=== PATIENT | male | born 1955 | race Caucasian/White ===

== ENCOUNTER → 2017-11-16 | Outpatient (CLI) | payer OTHER ==
[~2017-11-16] VITALS: Ht 185.4 cm; Wt 63.9 kg
[~2017-11-16] MED LIST: IBU400 MG PO; MOTRIN 400400 MG/TAB PO; QUESTRAN4 GM/9 GM PO; ULTRAM ER100 MG PO; VALIUM 5MG T5 MG/TAB PO
[2017-11-16 09:57] VITALS: BP 156/92; PULSE 51
[2017-11-16 10:21] LABS: PROTHROMBIN TIME 11.8 SECONDS (9.7-12.8)
== END ==
LOC: COL.RAD 09:30
PROVIDERS: Internal Medicine
DX: C24.0 Malignant neoplasm of extrahepatic bile duct (principal); K76.89 Other specified diseases of liver; Z53.8 Procedure and treatment not carried out for other reasons

== ENCOUNTER → 2018-06-04 | Outpatient (CLI) | payer OTHER ==
[2018-06-04] VITALS (9 sets, daily range): BP systolic 132–166; BP diastolic 68–97; PULSE 49–62
[~2018-06-04] VITALS: Ht 185.4 cm; Wt 65.9 kg
[2018-06-04 12:55] LABS: INR 1.1 (0.8-3.0)
== END ==
LOC: COL.RAD 05-29 12:30
PROVIDERS: Radiology Diagnostic Radiology
DX: C22.7 Other specified carcinomas of liver (principal); Z85.09 Personal history of malignant neoplasm of other digestive organs; Z98.890 Other specified postprocedural states
CPT/HCPCS: 25581

== ENCOUNTER 2018-08-09 17:27 | Emergency (ER) | payer OTHER ==
[~2018-08-09] VITALS: Ht 185.4 cm; Wt 63.6 kg
[2018-08-09 18:16] LABS: BASO % 0.4 % (0.0-2.0); EOS % 0.5 % (0-4.0); GRAN # 6.3 (1.4-6.5); GRAN % 83.3 % (42.2-75.2); HEMATOCRIT 39.2 % (42.0-52.0); HEMOGLOBIN 13.8 g/dl (13.5-18.0); LYMPH # 0.5 (1.2-3.4); LYMPH % 6.3 % (20.0-51.0); MEAN CELL VOLUME 94 fl (80.0-100.0); MEAN CORPUSCULAR HEMOGLOBIN 33 pg (27.0-31.0); MEAN CORPUSCULAR HGB CONC 35 g/dl (33.0-37.0); MEAN PLATELET VOLUME 9.9 fl (7.4-10.4); MONO # 0.7 (0.1-0.6); MONO % 9.2 % (1.7-9.3); PLATELET COUNT 132 K/mm3 (130-400); RED BLOOD COUNT 4.19 M/mm3 (4.20-5.60); REDCELL DISTRIBUTION WIDTH-CV 11.9 % (11.5-14.5)
[2018-08-09 18:32] LABS: ALBUMIN 3.8 gm/dL (3.5-5.0); BILIRUBIN,TOTAL 0.6 mg/dL (0.0-1.0); C-REACTIVE PROTEIN 3.2 mg/dL (0.0-0.9); CALCIUM 8.2 mg/dL (8.4-10.2); CREATININE, serum 0.58 mg/dL (0.66-1.25); POTASSIUM 4.1 mmol/L (3.4-5.0); TOTAL PROTEIN 6.7 gm/dL (6.4-8.2)
[2018-08-09 19:40] LABS: COLLECTION METHOD CLEAN CATCH
[2018-08-09 19:47] LABS: MUCOUS Present /lpf; PH 6 (5-8); SQUAMOUS EPITHELIAL None Seen /hpf; URINE APPEARANCE Clear; URINE BACTERIA None Seen /hpf; URINE BILIRUBIN Negative (NEGATIVE); URINE BLOOD Negative (NEGATIVE); URINE COLOR Yellow; URINE GLUCOSE Negative (NEGATIVE); URINE KETONE 2+ (NEGATIVE); URINE LEUKOCYTE ESTERASE Negative (NEGATIVE); URINE NITRATE Negative (NEGATIVE); URINE PROTEIN(semi-quant) Negative (NEGATIVE); URINE RBC 0-2 /hpf
[2018-08-09 20:47] VITALS: TEMP 100.1
[2018-08-09] MEDS ORDERED: CIPRO 500MG TA500 MG PO (20:52)
[2018-08-09] MEDS ORDERED: FLAGYL500 MG PO (20:52)
[2018-08-09 21:14] VITALS: BP 120/74; PULSE 63
== END 2018-08-09 21:17 | disposition home or self-care (01) ==
LOC: COL.ER 17:27
PROVIDERS: Emergency Medicine
DX: R10.11 Right upper quadrant pain (principal); R50.9 Fever, unspecified; Z90.49 Acquired absence of other specified parts of digestive tract; Z85.05 Personal history of malignant neoplasm of liver
CPT/HCPCS: J1644; J7030; Q9967

== ENCOUNTER 2018-12-24 11:46 | Emergency (ER) | payer SELFPAY ==
[~2018-12-24] VITALS: Ht 185.4 cm; Wt 62.1 kg
[~2018-12-24 11:46] MED LIST changes: +CIPRO 500MG TA500 MG PO; +FLAGYL500 MG PO
[2018-12-24 11:50] VITALS: TEMP 97.9
[2018-12-24] MEDS ORDERED: ATARAX 25MG25 MG/TAB PO (12:08)
[2018-12-24 12:43] LABS: BASO % 0.7 % (0.0-2.0); EOS # 0.1 (0.0-0.7); EOS % 2.5 % (0-4.0); GRAN # 3.3 (1.4-6.5); GRAN % 75.6 % (42.2-75.2); HEMATOCRIT 40.5 % (42.0-52.0); HEMOGLOBIN 13.6 g/dl (13.5-18.0); LYMPH # 0.5 (1.2-3.4); LYMPH % 11.2 % (20.0-51.0); MEAN CELL VOLUME 97 fl (80.0-100.0); MEAN CORPUSCULAR HEMOGLOBIN 33 pg (27.0-31.0); MEAN CORPUSCULAR HGB CONC 34 g/dl (33.0-37.0); MONO # 0.4 (0.1-0.6); MONO % 9.8 % (1.7-9.3); PLATELET COUNT 136 K/mm3 (130-400); RED BLOOD COUNT 4.18 M/mm3 (4.20-5.60); REDCELL DISTRIBUTION WIDTH-CV 12.5 % (11.5-14.5)
[2018-12-24 12:55] LABS: ALBUMIN 3.8 gm/dL (3.5-5.0); BILIRUBIN,TOTAL 3.5 mg/dL (0.0-1.0); C-REACTIVE PROTEIN 1.5 mg/dL (0.0-0.9); CREATININE, serum 0.6 mg/dL (0.66-1.25); POTASSIUM 4.6 mmol/L (3.4-5.0); TOTAL PROTEIN 7.3 gm/dL (6.4-8.2)
[2018-12-24 13:04] LABS: COLLECTION METHOD CLEAN CATCH
[2018-12-24 13:15] LABS: PH 6 (5-8); SQUAMOUS EPITHELIAL 0-2 /hpf; URINE APPEARANCE Clear; URINE BACTERIA None Seen /hpf; URINE BILIRUBIN Negative (NEGATIVE); URINE BLOOD Negative (NEGATIVE); URINE COLOR Amber; URINE GLUCOSE Negative (NEGATIVE); URINE KETONE Negative (NEGATIVE); URINE LEUKOCYTE ESTERASE Negative (NEGATIVE); URINE NITRATE Negative (NEGATIVE); URINE PROTEIN(semi-quant) Negative (NEGATIVE); URINE RBC 0-2 /hpf
[2018-12-24 16:10] VITALS: BP 122/60; PULSE 60
[2018-12-25] MEDS ORDERED: LEVAQUIN 5500 MG/TA1 PO (19:05)
[2018-12-25] MEDS ORDERED: COLESTID 1GM1 G PO (19:06)
[2018-12-25] MEDS ORDERED: COLESTID5 GM/PACKE PO (19:10)
[2018-12-25] MEDS ORDERED: TYLENOL 325MG325 MG PO (19:11)
== END 2018-12-24 16:10 | disposition home or self-care (01) ==
LOC: COL.ER 11:46
PROVIDERS: Family Medicine
DX: K83.1 Obstruction of bile duct (principal); K76.89 Other specified diseases of liver; Z87.891 Personal history of nicotine dependence
CPT/HCPCS: Q9967

== ENCOUNTER 2018-12-25 17:38 | Inpatient (IN) | payer OTHER ==
[~2018-12-25] VITALS: Ht 185.4 cm; Wt 61.6 kg
[~2018-12-25 17:38] MED LIST changes: +ATARAX 25MG25 MG/TAB PO
[2018-12-25] MEDS ORDERED: LEVAQUIN 5500 MG/TA1 PO (19:05)
[2018-12-25] MEDS ORDERED: COLESTID 1GM1 G PO (19:06)
[2018-12-25 19:09] VITALS: BP 116/66; PULSE 83; TEMP 99.4
[2018-12-25] MEDS ORDERED: COLESTID5 GM/PACKE PO (19:10)
[2018-12-25] MEDS ORDERED: TYLENOL 325MG325 MG PO (19:11)
[2018-12-25 19:33] LABS: BASO % 0.3 % (0.0-2.0); GRAN # 8.5 (1.4-6.5); GRAN % 89.9 % (42.2-75.2); HEMATOCRIT 40.1 % (42.0-52.0); HEMOGLOBIN 13.5 g/dl (13.5-18.0); LYMPH # 0.3 (1.2-3.4); LYMPH % 3.3 % (20.0-51.0); MEAN CELL VOLUME 96 fl (80.0-100.0); MEAN CORPUSCULAR HEMOGLOBIN 32 pg (27.0-31.0); MEAN CORPUSCULAR HGB CONC 34 g/dl (33.0-37.0); MEAN PLATELET VOLUME 10.2 fl (7.4-10.4); MONO # 0.6 (0.1-0.6); MONO % 6.1 % (1.7-9.3); PLATELET COUNT 142 K/mm3 (130-400); RED BLOOD COUNT 4.18 M/mm3 (4.20-5.60); REDCELL DISTRIBUTION WIDTH-CV 12.6 % (11.5-14.5)
[2018-12-25 19:39] LABS: ALBUMIN 3.8 gm/dL (3.5-5.0); BILIRUBIN,TOTAL 4.8 mg/dL (0.0-1.0); CALCIUM 8.7 mg/dL (8.4-10.2); CREATININE, serum 0.67 mg/dL (0.66-1.25); TOTAL PROTEIN 7.5 gm/dL (6.4-8.2)
[2018-12-25 21:25] LABS: PROTHROMBIN TIME 11.6 SECONDS (9.7-12.8)
[2018-12-25 23:18] VITALS: BP 141/71; PULSE 89; TEMP 102.3
[2018-12-25 23:44] LABS: COLLECTION METHOD CLEAN CATCH
[2018-12-25 23:51] LABS: PH 6 (5-8); SQUAMOUS EPITHELIAL 0-2 /hpf; URINE APPEARANCE Clear; URINE BACTERIA None Seen /hpf; URINE BILIRUBIN Negative (NEGATIVE); URINE BLOOD 1+ (NEGATIVE); URINE COLOR Amber; URINE GLUCOSE Negative (NEGATIVE); URINE KETONE Negative (NEGATIVE); URINE LEUKOCYTE ESTERASE Negative (NEGATIVE); URINE NITRATE Negative (NEGATIVE); URINE PROTEIN(semi-quant) Negative (NEGATIVE); URINE RBC 0-2 /hpf
[2018-12-26] VITALS (7 sets, daily range): BP systolic 107–142; BP diastolic 58–72; PULSE 67–86; TEMP 99–102.8
--- NOTE | 2018-12-26 01:58 | NUR ---
pt has had a 102.3 temp, Magdalene STAFF APPRAISER notified. blood cultures drawn before given Motrin. no needs at this time. will continue to monitor. pt admission assessment complete. pt skin jaundice. lungs clear. no swelling. A+Ox4. laying in bed with at bedside. call light in reach.
--- NOTE | 2018-12-26 03:00 | NUR ---
pt urine is armber, with a red tinge. no pain. temp decreased from 102.3 to 99.0 with motrin. no needs at this time. call light inreach
--- NOTE | 2018-12-26 04:44 | NUR ---
pt had an uneventful night. temp of 102.3- motrin brought temp down to 99.0. no needs at this time. call light inreach
--- NOTE | 2018-12-26 07:08 | NUR ---
REPORT GIVEN TO LINO AHUJA. PT REPORTS NO NEEDS
--- NOTE | 2018-12-26 11:19 | NUR ---
Assessment complete.patient laying in bed.a/ox3.denies pain or discomfort at this time.LSCTA.breathing even and unlabored.IVF infusing to left fermín cath.pt had MRCP done this morning.Pt continues to have fevers.last temp was 99.1.pulses palpable.abdomen soft and non tender.bowel sounds present and palpable.will continue to monitor.call light in reach.
--- NOTE | 2018-12-26 12:32 | NUR ---
First visit from the parachute cushion installer. No needs right now.
--- NOTE | 2018-12-26 12:59 | NUR ---
KUMAR met with patient and his about discharge plans. Patient lives independently at home with and plans to return there when discharged. Patient's PCP is Dr Kaur Rey and he obtains prescriptions from [facility] in [place]. Patient denies difficulty obtaining or paying for prescriptions. Patient does not have insurance but has completed a medicaid application and is waiting for the card to be mailed. Patient will meet with Sami from [email or web address] to complete a financial assistance application. Patient does not have any DME or home health services. Patient does not have a DPOA and is not interested in that at this time.
--- NOTE | 2018-12-26 18:24 | NUR ---
PATIENT TRANSFERED TO [facility] IN [place].REPORT GIVEN TO LINO CLAUDIO.PT TRANSPORTED VIA [facility].PT STABLE AT TIME OF TRANSPORT.GUERO CATH REMAINS ACCESSED.PT AWAKE AND ALERT.PRN MOTRIN GIVEN.PT DENIES ANY NEEDS.PT'S SPOUSE TOOK ALL PATIENT BELONGINGS.
== END 2018-12-26 18:26 | disposition short-term general hospital (02) | DRG 445 ==
LOC: MEDICAL 17:38
PROVIDERS: Nurse Practitioner Family; ADMIT Hospitalist
DX: K83.09 Other cholangitis (principal); C78.7 Secondary malignant neoplasm of liver and intrahepatic bile duct; E44.0 Moderate protein-calorie malnutrition; Z68.1 Body mass index [BMI] 19.9 or less, adult; Z87.891 Personal history of nicotine dependence; B95.2 Enterococcus as the cause of diseases classified elsewhere
CPT/HCPCS: 99239; A4216; J2185; J7030

== ENCOUNTER 2019-02-07 13:33 | Day surgery (SDC) | payer SELFPAY ==
[~2019-02-07] VITALS: Ht 185.4 cm; Wt 60.2 kg
[2019-02-07] VITALS (7 sets, daily range): BP systolic 140–154; BP diastolic 68–86; PULSE 56–69; TEMP 97.4–97.5
[~2019-02-07 13:33] MED LIST changes: +COLESTID 1GM1 G PO; +COLESTID5 GM/PACKE PO; +LEVAQUIN 5500 MG/TA1 PO; +TYLENOL 325MG325 MG PO
[2019-02-07] MEDS ORDERED: PRIL40 PO (14:20)
[2019-02-07] MEDS ORDERED: TYLENOL 325MG325 MG PO (14:20)
--- NOTE | 2019-02-07 14:21 | NUR ---
TO RM 1 AT 1341- CALL LIGHT IN REACH AT BEDSIDE.
--- NOTE | 2019-02-07 16:37 | NUR ---
TO RM 1 PER CART FROM PACU. C/O FEELING "SLIGHTLY NAUSEATED" DENIES PAIN OR DISCOMFORT RECEIVED WATER AT BEDSIDE.
--- NOTE | 2019-02-07 16:44 | NUR ---
RECEIVED ZOFRAN 4MG IV SLOW PUSH FOR C/O CONTINUED NAUSEA.
[2019-02-07] MEDS ORDERED: ULTRAM 50MG TAB50 MG PO (16:53)
--- NOTE | 2019-02-07 17:20 | NUR ---
RECEIVED CRACKERS AND TAKING A FEW BITES.
--- NOTE | 2019-02-07 18:45 | NUR ---
VOIDED 800CC LIGHT PUNCH COLORED URINE. STATED HE FELT HE COULD GO HOME NOW.
--- NOTE | 2019-02-07 19:00 | NUR ---
RECEIVED DISCHARGE INSTRUCTIONS AND VERBALIZED UNDERSTANDING.
--- NOTE | 2019-02-07 19:06 | NUR ---
DISCHARGED PER WC BY NURSING STAFF TO PRIVATE CAR IN CARE OF -JASON
== END 2019-02-07 19:09 | disposition home or self-care (01) ==
LOC: SDCO 13:33
DX: N13.2 Hydronephrosis with renal and ureteral calculous obstruction (principal); Z87.442 Personal history of urinary calculi; Z85.09 Personal history of malignant neoplasm of other digestive organs; Z79.899 Other long term (current) drug therapy; Z90.49 Acquired absence of other specified parts of digestive tract; Z87.11 Personal history of peptic ulcer disease; Z96.89 Presence of other specified functional implants; Z85.05 Personal history of malignant neoplasm of liver; Z92.21 Personal history of antineoplastic chemotherapy
CPT/HCPCS: C1758; C1769; C2617; J0360; J0690; J1100; J1644; J2405; J2704; J3010; J7120; Q9967

== ENCOUNTER 2019-04-01 13:32 | Inpatient (IN) | payer BC ==
[~2019-04-01] VITALS: Ht 185.4 cm; Wt 65.8 kg
[~2019-04-01 13:32] MED LIST changes: +PRIL40 PO; +ULTRAM 50MG TAB50 MG PO
[2019-04-01 14:36] LABS: BASO % 0.5 % (0.0-2.0); EOS # 0.1 (0.0-0.7); EOS % 0.8 % (0-4.0); GRAN # 6.4 (1.4-6.5); GRAN % 82.3 % (42.2-75.2); HEMOGLOBIN 11.3 g/dl (13.5-18.0); LYMPH # 0.5 (1.2-3.4); LYMPH % 6.6 % (20.0-51.0); MEAN CELL VOLUME 96 fl (80.0-100.0); MEAN CORPUSCULAR HEMOGLOBIN 32 pg (27.0-31.0); MEAN CORPUSCULAR HGB CONC 33 g/dl (33.0-37.0); MEAN PLATELET VOLUME 9.7 fl (7.4-10.4); MONO # 0.7 (0.1-0.6); MONO % 9.5 % (1.7-9.3); PLATELET COUNT 134 K/mm3 (130-400); RED BLOOD COUNT 3.55 M/mm3 (4.20-5.60); REDCELL DISTRIBUTION WIDTH-CV 13.1 % (11.5-14.5)
[2019-04-01 14:37] LABS: HEMATOCRIT 34.1 % (42.0-52.0)
[2019-04-01 14:47] LABS: ALBUMIN 3.1 gm/dL (3.5-5.0); BILIRUBIN,TOTAL 1.8 mg/dL (0.0-1.0); CALCIUM 8.3 mg/dL (8.4-10.2); CREATININE, serum 0.53 (0.66-1.25); POTASSIUM 4.4 mmol/L (3.4-5.0); TOTAL PROTEIN 6.7 gm/dL (6.4-8.2)
[2019-04-01 15:02] LABS: C-REACTIVE PROTEIN 14.2 mg/dL (0.0-0.9)
[2019-04-01 16:47] LABS: INR 1.2 (0.8-3.0); PROTHROMBIN TIME 13.5 SECONDS (9.7-12.8)
[2019-04-01 16:49] LABS: PARTIAL THROMBOPLASTIN TIME 97.3 SECONDS (26.0-37.0)
--- NOTE | 2019-04-01 19:42 | NUR ---
admission assessment completed, alert/oriented, vital signs have been stable, denies any pain, denies shortness of breath/ O2 sats WNL on room air, lungs CTA/ diminished bases, heart RRR, started on heparin gtt/ hepXa level recehck at 2300, present, notified of arrival, meds/allergies/pharmacy reviewed
--- NOTE | 2019-04-01 20:30 | NUR ---
Initial shift assessment done- denies pain,, denies SOB, has heparin drip at 11.5cc/hr- will have recheck of hepxa at 2300. Understands to use urinal so that we can measure amout of urine out. Has Biliary tube to right side of abdomen- pt states he flushes it twice a day at home- states he will just continue to do it here- has PAC to left upper chest
[2019-04-01 20:56] VITALS: BP 133/75; PULSE 77; TEMP 99
[2019-04-02] VITALS (7 sets, daily range): BP systolic 97–136; BP diastolic 62–77; PULSE 63–72; TEMP 98–100
--- NOTE | 2019-04-02 05:34 | NUR ---
Quiet night- no requests,, heparin drip at 13cc/hr{1300units/hr}- repeat hep XA at 0615,, on droplet Isolation for pending resp panel,
[2019-04-02 06:44] LABS: HEMOGLOBIN 10.6 g/dl (13.5-18.0); MEAN CELL VOLUME 96 fl (80.0-100.0); MEAN CORPUSCULAR HEMOGLOBIN 31 pg (27.0-31.0); MEAN CORPUSCULAR HGB CONC 33 g/dl (33.0-37.0); MEAN PLATELET VOLUME 9.9 fl (7.4-10.4); PLATELET COUNT 111 K/mm3 (130-400)
[2019-04-02 06:50] LABS: HEMATOCRIT 32.5 % (42.0-52.0)
[2019-04-02 06:52] LABS: INR 1.2 (0.8-3.0); PROTHROMBIN TIME 13.5 SECONDS (9.7-12.8)
[2019-04-02 06:53] LABS: ALBUMIN 2.8 gm/dL (3.5-5.0); BILIRUBIN,TOTAL 1.3 mg/dL (0.0-1.0); CALCIUM 8.3 mg/dL (8.4-10.2); CREATININE, serum 0.62 (0.66-1.25); MAGNESIUM 1.9 mg/dL (1.6-2.3); POTASSIUM 3.9 mmol/L (3.4-5.0); TOTAL PROTEIN 6.2 gm/dL (6.4-8.2)
[2019-04-02 07:13] LABS: EOSINOPHIL 1 % (0-4); LYMPHOCYTE 5 % (20.0-51.0); NEUTROPHILS 83 % (42.0-75.2); PLATELET ESTIMATE DECREASED (NORMAL)
[2019-04-02 07:14] LABS: TOXIC GRANULATION PRESENT
--- NOTE | 2019-04-02 09:30 | NUR ---
Completed assessment and medication administration; PT tolerated all cares well; PT A&Ox4, bilateral bases diminished with mild wheezing; Heparin Drip dosing changes impl per lab value; Increased to 14ml/hr; No pain reported at time of assessment; PT able to walk with PT with no complaints; No complaints of pain or discomfort at time of assessment; PT able to return to a comfortable position in bed with personal items and call light within reach; Will continue to monitor. CDA
--- NOTE | 2019-04-02 09:42 | NUR ---
Initial visit; Patient's family member thanked [employer] for looking in on Ismael and was receptive of [employer] keeping them in her prayers.
--- NOTE | 2019-04-02 13:43 | NUR ---
SW attended clinical rounds to discuss discharge planning. Patient lives independently at home with is . Patient's PCP is Dr Garcia and he obtains prescriptions from [facility]. Patient does not use any DME or home health servcies. Patient was seen by PT and OT. Patient should not require any home health services or post acute rehab per PT and OT notes. SW does not anticipate any discharge needs.
--- NOTE | 2019-04-02 14:00 | NUR ---
Completed and D/C Heparin drip per verbal medication changes; PT educated on change; eMAR updated and medication disconnected from port. CDA
--- NOTE | 2019-04-02 16:11 | NUR ---
PT tolerating all new medication changes; No further needs or pain reported at time of all rounds; Will continue to monitor. CDA
--- NOTE | 2019-04-02 20:00 | NUR ---
Report received. 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 Assessment complete. VS stable-Oral temp noted to be 100.0 orally-will continue to monitor this. Denies pain. Denies N/V. Noted to have some ascites. Biliary duct drain present-independent with care. Crackles noted to left lower lobe-diminished upper lobes. Denies shortness of breath/productive cough. Encouraged to call for questions or concerns. Verbalizes understanding. Call light within reach. Bed in low position/wheels locked. Will monitor.
[2019-04-03 00:20] VITALS: BP 127/70; PULSE 70; TEMP 100.4
--- NOTE | 2019-04-03 01:30 | NUR ---
Noted to have an increase in temp to 100.4 orally. New orders received. IS teaching complete. Raised to 1500 without difficulty. Instructed to do 10 reps every hour while awake. Verbalizes understanding. WIll recheck temp in an hour.
--- NOTE | 2019-04-03 02:45 | NUR ---
Temp rechecked-98.9 orally. Denies any pain at this time. Encouraged to continue to use IS. Will monitor.
[2019-04-03 02:53] VITALS: TEMP 98.9
[2019-04-03 04:38] VITALS: TEMP 99.1
[2019-04-03 04:41] VITALS: BP 120/68; PULSE 64; TEMP 99.2
--- NOTE | 2019-04-03 04:58 | NUR ---
Has rested off and on this shift. Last temp 99.2 orally. Encouraged to continue using IS. Verbalizes understanding. Denies pain/shortness of breathe. Will continue to monitor.
[2019-04-03 06:30] LABS: BASO % 0.4 % (0.0-2.0); EOS # 0.1 (0.0-0.7); EOS % 2.4 % (0-4.0); GRAN # 3.5 (1.4-6.5); GRAN % 77.3 % (42.2-75.2); HEMOGLOBIN 10.2 g/dl (13.5-18.0); LYMPH # 0.4 (1.2-3.4); LYMPH % 9.7 % (20.0-51.0); MEAN CELL VOLUME 95 fl (80.0-100.0); MEAN CORPUSCULAR HEMOGLOBIN 32 pg (27.0-31.0); MEAN CORPUSCULAR HGB CONC 33 g/dl (33.0-37.0); MEAN PLATELET VOLUME 9.9 fl (7.4-10.4); MONO # 0.5 (0.1-0.6); PLATELET COUNT 132 K/mm3 (130-400); RED BLOOD COUNT 3.24 M/mm3 (4.20-5.60); REDCELL DISTRIBUTION WIDTH-CV 12.9 % (11.5-14.5)
[2019-04-03 06:40] LABS: ALBUMIN 2.7 gm/dL (3.5-5.0); BILIRUBIN,TOTAL 0.9 mg/dL (0.0-1.0); CALCIUM 8.1 mg/dL (8.4-10.2); CREATININE, serum 0.6 (0.66-1.25); POTASSIUM 3.7 mmol/L (3.4-5.0)
[2019-04-03 06:48] LABS: HEMATOCRIT 30.9 % (42.0-52.0)
[2019-04-03 07:37] VITALS: BP 120/73; PULSE 66; TEMP 98.7
--- NOTE | 2019-04-03 08:00 | NUR ---
Assessment complete. Pt sitting up in bed, A&O x 4. Breath sounds CTA in right lung, diminished in left lower lobe. BS active x 4. Pt denies pain at this time. Saline lock to right forearm and PAC to left chest without s/s of complications. Biliary drain to dependent drainage, pt reports independently managing. No further needs reported. Call light in reach.
[2019-04-03] MEDS ORDERED: ELIQUIS 5MG PO (11:05)
[2019-04-03] MEDS ORDERED: ALDACTONE 25MG25 M1 PO (11:06)
[2019-04-03] MEDS ORDERED: LASIX 20MG TABL20 MG PO (11:06)
[2019-04-03] MEDS ORDERED: LEVAQUIN 750MG750 M1 PO (11:07)
[2019-04-03 11:45] VITALS: BP 123/73; PULSE 65; TEMP 98.6
--- NOTE | 2019-04-03 14:00 | NUR ---
Discharge instructions reviewed with pt and regarding new medications, lab check, and follow-up appointments. Questions invited and answered. Pt verbalizes understanding, discharged home, escorted out of facility via WC accompanied by CORPORATE STAFF ACCOUNTANT and pt's family.
== END 2019-04-03 14:30 | disposition home or self-care (01) | DRG 435 ==
LOC: COL.ER 13:32 → MEDICAL 16:58
PROVIDERS: Emergency Medicine; Physician Assistant; ADMIT Internal Medicine
DX: C24.0 Malignant neoplasm of extrahepatic bile duct (principal); I26.99 Other pulmonary embolism without acute cor pulmonale; J18.9 Pneumonia, unspecified organism; R18.8 Other ascites; J91.8 Pleural effusion in other conditions classified elsewhere; C78.7 Secondary malignant neoplasm of liver and intrahepatic bile duct; E46 Unspecified protein-calorie malnutrition; Z68.1 Body mass index [BMI] 19.9 or less, adult; Z88.0 Allergy status to penicillin; R53.81 Other malaise
CPT/HCPCS: 99223-AI; 99232-AI; 99233-AI; 99239; A9284; J1644; J1956; J7030; Q9967

== ENCOUNTER → 2019-04-15 | Outpatient (CLI) | payer BC ==
--- NOTE | 2019-04-12 10:21 | NUR ---
left msg on machine with instructions to call md and ask if it would be ok to skip the dose of eliquis the night before and the morning of the procedure. instructed pt to call back and left number
[~2019-04-15] VITALS: Ht 185.4 cm; Wt 62.7 kg
[~2019-04-15] MED LIST changes: +ALDACTONE 25MG25 M1 PO; +ELIQUIS 5MG PO; +LASIX 20MG TABL20 MG PO; +LEVAQUIN 750MG750 M1 PO
[2019-04-15 09:24] VITALS: BP 115/81; PULSE 78
[2019-04-15 11:00] VITALS: BP 134/80; PULSE 76
[2019-04-15 11:48] LABS: PERITONEAL -POLYMORPHONUCLEAR 63.4 % (0-25); PERITONEAL FLUID RBC 1000 /mm3 (0-0)
== END ==
LOC: COL.RAD 08:58
PROVIDERS: Internal Medicine
DX: C24.0 Malignant neoplasm of extrahepatic bile duct (principal); K83.09 Other cholangitis; R18.8 Other ascites; I26.99 Other pulmonary embolism without acute cor pulmonale; N20.0 Calculus of kidney
CPT/HCPCS: 19804